=== PATIENT | female | born 1990 | race Two or more races ===

== ENCOUNTER 2019-06-01 10:26 | Emergency (ER) | payer MEDICARE, MEDICAID ==
[~2019-06-01] VITALS: Ht 170.2 cm; Wt 105.2 kg
[2019-06-01 10:35] VITALS: BP 122/78
[2019-06-01] MEDS ORDERED: DIPHENHYDRAMINE 50 MG/ML, 1ML ONE (11:12)
[2019-06-01] MEDS ORDERED: HYDROcodone/APAP 5/325 TABLET ONE (11:28)
[2019-06-01] MEDS ORDERED: DIPHENHYDRAMINE 50 MG/ML, 1ML IVPush ONE (11:30)
[2019-06-01] MEDS ORDERED: DIPH,PERTUSS(ACELL),TET VAC/PF 0.5 ML IM-VACC ONE ×2 (11:30→11:54)
[2019-06-01] MEDS ORDERED: NEOSPORIN OINT. PKT 1 PACKET ONE (11:54)
== END 2019-06-01 12:19 | disposition home or self-care (01) ==
LOC: ED 12:00
DX: S81.812A Laceration without foreign body, left lower leg, initial encounter (principal); Z88.6 Allergy status to analgesic agent; X58.XXXA Exposure to other specified factors, initial encounter; Y93.89 Activity, other specified; Y92.009 Unspecified place in unspecified non-institutional (private) residence as the place of occurrence of the external cause; Y99.8 Other external cause status
CPT/HCPCS: 12032; 90471; 90715; 96372; 99284; J1200